=== PATIENT | female | born 1955 | race Caucasian/White ===

== ENCOUNTER → 2023-03-27 10:13 | Outpatient (REF) | payer MEDICARE, OTHER, SELFPAY | LOC: RCS 10:13 | PROVIDERS: ATTENDING PHYSICIAN Internal Medicine Cardiovascular Disease; FAMILY PHYSICIAN Family Medicine | DX: R07.9 Chest pain, unspecified (principal) | CPT/HCPCS: 93017; 93350 ==

== ENCOUNTER 2024-05-02 06:28 | Day surgery (SDC) | payer MEDICARE, OTHER, SELFPAY | END 2024-05-02 16:41 | disposition home or self-care (01) | LOC: GI 06:28 | PROVIDERS: ATTENDING PHYSICIAN Internal Medicine Gastroenterology | DX: Z12.11 Encounter for screening for malignant neoplasm of colon (principal); C19 Malignant neoplasm of rectosigmoid junction; D12.2 Benign neoplasm of ascending colon; D12.3 Benign neoplasm of transverse colon; D12.5 Benign neoplasm of sigmoid colon; Z86.0100 Personal history of colon polyps, unspecified | CPT/HCPCS: 45385; 45381; 45380; 88305; 88342 ==

== ENCOUNTER 2024-05-14 06:15 | Day surgery (SDC) | payer MEDICARE, SELFPAY | END 2024-05-14 11:51 | disposition home or self-care (01) | LOC: GI 06:15 | PROVIDERS: ATTENDING PHYSICIAN Surgery | DX: C18.9 Malignant neoplasm of colon, unspecified (principal) | CPT/HCPCS: 45330 ==

== ENCOUNTER → 2024-05-19 13:50 | Outpatient (REF) | payer MEDICARE, SELFPAY | LOC: RAD 13:50 | PROVIDERS: ATTENDING PHYSICIAN Surgery; FAMILY PHYSICIAN Family Medicine | DX: R97.0 Elevated carcinoembryonic antigen [CEA] (principal) | CPT/HCPCS: 71260; 74177; Q9967 ==

== ENCOUNTER 2024-06-12 15:56 | Observation (INO) | payer MEDICARE, SELFPAY ==
[2024-06-12] VITALS (7 sets, daily range): BP systolic 119–163; BP diastolic 58–86; BMI 22.7; BMI 21.0
--- NOTE | 2024-06-12 14:32 | ED.CVA ---
History of Present Illness
General
Chief Complaint: CVA/TIA Symptoms
Time Seen by Provider: 06/12/24 14:26
Onset of Stroke Symptoms
Onset of symptoms known: Yes
Date of onset of symptoms: 06/12/24
Time of onset of symptoms: 14:30
Time pt last seen normal is known: Yes
Date last time pt seen normal: 06/12/24
History of Present Illness
History of Present Illness:
69-year-old female without significant past medical history presenting for acute onset of left facial drooping and slurred speech. Patient reports she was walking and felt like she was leaning to the left. Symptoms started about 1 hour ago. She
then saw her daughter, 30 minutes prior to arrival, who also noticed symptoms. Patient denies any history of stroke. Denies any recent trauma. She is not on any blood thinners. Denies chest pain, difficulty breathing, abdominal pain. Denies any
numbness or tingling to extremities. Denies visual changes. Denies additional medical complaints
Phy Exam
Physical Exam
Physical Exam:
General: Well-appearing, no clinical signs of dehydration, nontoxic and in no acute distress
HEENT: protecting airway
Neck: appears supple
CV: Normal heart rate, regular rhythm
Resp: No accessory muscle use, no increased work of breathing, lungs clear to auscultation bilaterally
Abd: Soft and non-distended, no tenderness to palpation, normal bowel sounds
Extremities: No deformities, no swelling, no erythema, pulses and sensation intact
Neuro: alert, left facial droop with mild slurring of speech
: deferred
Rectal: deferred
Psych: Normal affect
Skin: Intact
Scores
NIH Stroke Score
Level of Consciousness: 0 - Alert
LOC Questions: 0-Answers both correctly
LOC Commands: 0-Performs both correctly
Best Horizontal Gaze: 0-Normal
Visual Alejo: 0=Normal, no visual loss
Facial Palsy: 1=Minor paralysis
Motor - Right Arm: 0=No drift 10 seconds
Motor - Left Arm: 0=No drift 10 seconds
Motor - Right Le-No drift 5 seconds
Motor - Left Le-No drift 5 seconds
Limb Ataxia: 0-Absent
Sensation: 0-Normal
Best Language: 0-No aphasia
Dysarthria: 1-Mild slurring
Extinction and Inattention: 0-No abnormality
Total Score:: 2
Course
Orders/Labs/Results
Orders:
Orders
06/12/24 14:24
EKG [Electrocardiogram (*1)] Urgent
Reason for Study: Fatigue / Weakness
06/12/24 14:25
EKG- Treatment ONCE
06/12/24 14:26
CT HEAD STROKE ALERT W/o Cont Urgent
Comment:
Reason For Exam: L-droop and slurred speech
CT HEAD/NECK ANG STROKE ALERT Urgent
Comment:
Reason For Exam: L-droop and slurred speech
06/12/24 14:28
Complete Blood Count/With Diff Urgent
Comprehensive Metabolic Panel Urgent
PTT Urgent
Prothrombin Time Urgent
Troponin I Urgent
Abnormal Lab Results
06/12/24 06/12/24
14:28 14:48
RBC 3.90 L 10^6/uL
(4.20-5.40)
Hgb 11.3 L g/dL
(12.0-16.0)
Hct 34.2 L %
(37.0-47.0)
Glucose 137 H mg/dl
(70-99)
POC Glucose 136 H mg/dl
(70-99)
06/12/24 14:28
06/12/24 14:28
Vital Signs
Initial and Last Documented VS:
Initial Vital Signs
Pulse Resp BP Pulse Ox
80 18 132/79 99
06/12/24 14:17 06/12/24 14:17 06/12/24 14:17 06/12/24 14:17
Last Documented Vital Signs
Temp Pulse Resp BP Pulse Ox
97.5 F 75 22 137/86 96
06/12/24 14:53 06/12/24 14:53 06/12/24 14:53 06/12/24 14:53 06/12/24 14:53
MDM/Problems Addressed
MDM/Problems Addressed:
69-year-old female without significant past medical history presenting for acute onset of facial drooping, slurred speech, off balance, which started an hour prior to arrival. Vital signs are normal.
On exam, patient resting comfortably, no acute distress. Patient arrives by triage, immediately evaluated for concern of strokelike symptoms. Stroke alert was subsequently called because patient is within window for TNK. NIH stroke scale is a 2
for slurring of speech and facial droop. Patient sent immediately to CT scan. Neurology at bedside
15:00 -CT and CTA are negative for acute process. In discussion with neuro, no TNK given minimal deficits, and additionally patient has active cancerous process. She has had breast cancer in the past, suspected colon cancer, still waiting on
staging. Will start on aspirin and Plavix and plan for admission for continued monitoring and MRI
*Critical Care Note
Total Time (30-74mins, 75-104mins- exclusive of procedures): Not Applicable
ED Attending Note
-
Portions of this chart may have been created with voice recognition software.� Occasional wrong word or��sound alike� substitutions may have occurred due to the inherent limitations of voice recognition software.
Discharge Plan
Departure
Prescriptions:
No Action
levetiracetam [Keppra] 500 mg Tablet
500 mg PO HS
levetiracetam [Keppra] 250 mg Tablet
250 mg PO DAILY
duloxetine [Cymbalta] 20 mg Capsule,Delayed Release(Dr/Ec)
20 mg PO HS
duloxetine [Cymbalta] 60 mg Capsule,Delayed Release(Dr/Ec)
60 mg PO HS
aripiprazole 2 mg Tablet
2 mg PO HS
cholecalciferol (vitamin D3) [Vitamin D3] 25 mcg (1,000 unit) Tablet
25 mcg PO DAILY
Interventions
Interventions:
*Risk Screen - Suicide Last Done: 06/12/24 14:53
*General Assessment Last Done: 06/12/24 14:53
*Neglect/Abuse Screening Last Done: 06/12/24 14:53
*ED- Fall Risk Assessment Last Done: 06/12/24 14:53
*ED COVID-19 Vaccine History Last Done: 06/12/24 14:53
ED- Pulmonary Assessment Last Done: 06/12/24 14:53
ED- Neurological Assessment Last Done: 06/12/24 14:53
ED- Cardiac Assessment Last Done: 06/12/24 14:53
ED Swallowing Screen Last Done: 06/12/24 14:53
Discharge Date and Time
Print Language: BURKINAN
[2024-06-12 14:34] LABS: % Basophils 0.6 % (0-2); % Eosinophils 1.6 % (0-6); % Immature Granulocytes 0.2 % (0-0.5); % Lymphocytes 32.4 % (20.5-51.1); % Monocytes 8.5 % (1.7-9.3); % Neutrophils 56.7 % (42.2-75.2); Absolute Eosinophils 0.1 10^3/uL (0-0.7); Absolute Lymphocytes 1.6 10^3/uL (1.2-3.4); Absolute Monocytes 0.4 10^3/uL (0.1-0.6); Absolute Neutrophils 2.9 10^3/uL (1.4-6.5); Hematocrit 34.2 % (37.0-47.0); Hemoglobin 11.3 g/dL (12.0-16.0); Mean Corpuscular Volume 87.7 fL (81.0-99.0); Mean Platelet Volume 8.6 fL (7.4-10.4); Nucleated Red Blood Cells % 0 %; Platelet Count 274 10^3/uL (130-400); Red Cell Dist. Width 12.8 % (11.5-14.5); White Blood Cell Count 5.1 10^3/uL (4.8-10.8)
[2024-06-12 14:47] LABS: INR 0.96; PT 13.2 Sec (11.4-14.6)
[2024-06-12 14:48] LABS: APTT 26.8 Sec (23.4-35.0)
[2024-06-12 14:50] LABS: Glucose - Point of Care 136 mg/dl (70-99)
[2024-06-12 14:53] LABS: ALT (SGPT) 27 U/L (0-35); AST (SGOT) 35 U/L (14-36); Albumin 4.5 g/dl (3.5-5.0); Alkaline Phosphatase 71 U/L (38-126); Blood Urea Nitrogen 13 mg/dl (7-17); Calcium 9.7 mg/dl (8.4-10.2); Carbon Dioxide 29 mmol/L (22-30); Chloride 103 mmol/L (98-107); Glucose 137 mg/dl (70-99); Potassium 4.4 mmol/L (3.5-5.1); Sodium 141 mmol/L (135-145); Total Bilirubin 0.6 mg/dl (0.2-1.3); eGFR > 60.00
[2024-06-12 14:57] LABS: Troponin I < 0.012 ng/ml
--- NOTE | 2024-06-12 15:03 | CON.NEURO ---
Consultation
Order
Date of Consultation: 06/12/24
Requesting Provider: Paramjit Gu MD
Reason for Consult: Stroke alert
Called in at 14:21
Neurology Consultation Note.
HPI: This is a 69-year-old RH woman who presented to [facility] on 06/12/2024 with dysarthria, imbalance and facial asymmetry. According to the patient she noted an acute imbalance while outside with her grandson. She felt like she
was leaning to the left a couple of times after returning indoors. The patient's daughter noticed facial symmetry and dysarthria that patient is still unaware of. No reports of headaches, change in vision, strength or similar episodes in the past.
Ms. Bernal had been with her daughter since 10:00 AM. Around 12:30 PM, the patient went outside for about 45 minutes. Upon returning inside, she reported that her balance was off. The daughter noticed the change in her mother's speech at
approximately 2:00 PM, prompting them to seek medical attention.
In the week prior to presentation, the patient noticed intermittent paraphasic errors (e.g., saying 'pain' instead of 'Ihsan'). This occurred 8-10 times over a few days, which she found unusual.
Ms. Bernal is currently taking Keppra 250/500. She has a history of epilepsy presenting with convulsions on 3 occasions throughout her life.
ER VS: 132/79, 80, afebrile
EKG: NSR, QTc Int : 453 ms
PDMP: Clonazepam 0.5 Mg 90 tabs filled in on 02/04/2024, 30 tabs filled in on 05/26/2024.
Labs: Glucose�137, normal sodium, WBCs, platelets, hemoglobin�11.3
CT head wo contrast�no acute abnormalities, pineal cyst
CTA head/neck no evidence of hemodynamically significant stenosis
PMH: Sigmoid adenocarcinoma, breast cancer, epilepsy (convulsions at the age of 18, 22 and approximately 7 years ago), [place]
PSH: Bilateral mastectomy with reconstruction: Colonoscopy with biopsy
SH: Lives alone, non-smoker, independent in [place]
FH: Cancer
All:NKDA
ROS: Constitutional: Negative. Negative for chills, fever and unexpected weight change.
HENT: Negative for ear pain, hearing loss, tinnitus and trouble swallowing.
Eyes: Negative. Negative for photophobia, pain and visual disturbance.
Respiratory: Negative for cough, choking and shortness of breath.
Cardiovascular: Negative for chest pain, palpitations and leg swelling.
Gastrointestinal: Negative for abdominal pain and vomiting.
Endocrine: Negative. Negative for cold intolerance.
Genitourinary: Negative for dysuria, flank pain and urgency.
Musculoskeletal: Negative for back pain, gait problem, neck pain and neck stiffness.
Skin: Negative for rash.
Allergic/Immunologic: Negative. Negative for immunocompromised state.
Neurological: Positive for dysarthria, imbalance
Psychiatric/Behavioral: Negative for behavioral problems, confusion and hallucinations.
General: Well developed. In no acute distress.
Cardio: Regular rate and rhythm without murmur. Extremities are without cyanosis or edema.
Neuro:
Mental Status: Alert, oriented to person, place, and date. Normal attention and recall. Good fund of knowledge. Follows complex requests across the midline. Comprehension, naming, and repetition intact.
Cranial Nerves: Pupils are equally round and reactive to light. EOMs full. Visual masters full to confrontation. No ptosis. No nystagmus. V1-V3 intact to light touch and pinprick bilaterally, symmetric. Left nasolabial fold flattening. Normal
hearing AU. The palate elevated well. SCMs and traps 5/5. Tongue midline. Minimal lingual dysarthria.
Motor: Normal bulk and tone. No pronator or arm drift. Strength 5/5 throughout. No clonus.
Sensory: No extinction to double simultaneous stimuli
Coordination: Mild action hand tremor. No dysmetria
Gait: deferred
NIH: 2
Assessment and Plan:
I. Right subcortical infarct. Not a candidate for IV TNK due to low NIH stroke scale.
II. Seizure DO, NOS
III. Pineal cyst
IV. History of breast cancer
-Continue Telemetry monitoring
-Start ASA 81 mg QD
-Brain MRI with and without well[place]
-Obtain medical records from patient's PCP
-Please check HbA1C, LDL, urine tox
-DVT prophylaxis.
I personally reviewed all radiology and labs along with past medical records pertinent to current medical problems. Total time spent in patient care is 65 minutes.
Thank you for allowing us to participate in the care of this patient. We will continue to follow. Please do not hesitate to contact us with any questions or concerns.
Subjective/Objective
Subjective Data
Date of Service: June 12, 2024
Objective Data
Vital Signs
Temp Pulse Resp BP Pulse Ox
36.4 C 75 22 137/86 96
06/12/24 14:53 06/12/24 14:53 06/12/24 14:53 06/12/24 14:53 06/12/24 14:53
Lab Results
06/12/24 14:28
06/12/24 14:28
PT 13.2 Sec (11.4-14.6) 06/12/24 14:28
INR 0.96 06/12/24 14:28
APTT 26.8 Sec (23.4-35.0) 06/12/24 14:28
Sodium 141 mmol/L (135-145) 06/12/24 14:28
Potassium 4.4 mmol/L (3.5-5.1) 06/12/24 14:28
BUN 13 mg/dl (7-17) 06/12/24 14:28
Glucose 137 mg/dl (70-99) H 06/12/24 14:28
Calcium 9.7 mg/dl (8.4-10.2) 06/12/24 14:28
Patient Allergies
NKA - No Known Allergies Allergy (Uncoded 06/20/07 14:06)
Vital Signs and Labs
-
Vital Signs and Labs:
Vital Signs
Temp Pulse Resp BP Pulse Ox
36.4 C 75 22 137/86 96
06/12/24 14:53 06/12/24 14:53 06/12/24 14:53 06/12/24 14:53 06/12/24 14:53
Lab Results
06/12/24 14:28
06/12/24 14:28
PT 13.2 Sec (11.4-14.6) 06/12/24 14:28
INR 0.96 06/12/24 14:28
APTT 26.8 Sec (23.4-35.0) 06/12/24 14:28
Sodium 141 mmol/L (135-145) 06/12/24 14:28
Potassium 4.4 mmol/L (3.5-5.1) 06/12/24 14:28
BUN 13 mg/dl (7-17) 06/12/24 14:28
Glucose 137 mg/dl (70-99) H 06/12/24 14:28
Calcium 9.7 mg/dl (8.4-10.2) 06/12/24 14:28
Home Medications
-
Home Medications
aripiprazole 2 mg tablet 2 mg PO HS 06/12/24
cholecalciferol (vitamin D3) 25 mcg (1,000 unit) tablet (Vitamin D3) 25 mcg PO DAILY 06/12/24
duloxetine 20 mg capsule,delayed release (Cymbalta) 20 mg PO HS 06/12/24
duloxetine 60 mg capsule,delayed release (Cymbalta) 60 mg PO HS 06/12/24
levetiracetam 250 mg tablet (Keppra) 250 mg PO DAILY 06/12/24
levetiracetam 500 mg tablet (Keppra) 500 mg PO HS 06/12/24
[2024-06-12] MEDS: ASPIRIN 325 MG PO (15:31)
[2024-06-12] MEDS: PLAVIX 300 MG PO (15:31)
--- NOTE | 2024-06-12 15:52 | HPS.HSE ---
Addendum entered and electronically signed by Paramjit Gu MD 06/12/24 15:55:
Speech and swallow ordered.
Original Note:
Family Physician
-
Family Physician: Colton Cruz
Chief Complaint
-
facial droop
History of Present Illness
69-year-old female past medical history of epilepsy, hyperlipidemia, osteoporosis, hypertension, depression, breast cancer s/p double mastectomy, sigmoid colon cancer, presenting with acute onset of left facial droop and slurred speech starting 1
hour ago. She was walking and felt like she was leaning to the left. Daughter also noted similar symptoms. Denies history of stroke. Denies any trauma. Denies any numbness or tingling. Denies visual changes. Denies vertigo. Denies headache.
She denies smoking or alcohol use.
No family history of strokes.
Medical History
Past Medical History
Past Medical History: Reports Other (epilepsy, hyperlipidemia, osteoporosis, hypertension, depression, sigmoid colon cancer,)
Past Surgical History: Reports Other (double mastectomy )
Social History
Tobacco: Non-smoker
Alcohol: None
Drug: None
Family History
Family History: Not pertinent
Allergies / Home Medications
Allergies reflects when Allergies were last updated in [facility].
Home Medications with original date entered in [facility]
Allergy/Medication List:
Allergies
Allergy/AdvReac Type Severity Reaction Status Date / Time
NKA - No Known Allergies Allergy Uncoded 06/20/07 14:06
Home Medications
aripiprazole 2 mg tablet 2 mg PO HS 06/12/24
cholecalciferol (vitamin D3) 25 mcg (1,000 unit) tablet (Vitamin D3) 25 mcg PO DAILY 06/12/24
duloxetine 20 mg capsule,delayed release (Cymbalta) 20 mg PO HS 06/12/24
duloxetine 60 mg capsule,delayed release (Cymbalta) 60 mg PO HS 06/12/24
levetiracetam 250 mg tablet (Keppra) 250 mg PO DAILY 06/12/24
levetiracetam 500 mg tablet (Keppra) 500 mg PO HS 06/12/24
Review of Systems
-
History Source: Patient
A 12 point ROS was completed and negative except as noted: Yes
Constitutional: Reports No Symptoms
EENT: Reports No Symptoms
Respiratory: Reports No Symptoms
Cardiac: Reports No Symptoms
Abdomen/GI: Reports No Symptoms
: Reports No Symptoms
Musculoskeletal: Reports No Symptoms
Skin: Reports No Symptoms
Neurological: Reports See HPI
Endocrine: Reports No Symptoms
Hematologic/Lymphatic: Reports No Symptoms
Psych: Reports No Symptoms
Physical Exam
Vital Signs
Vital Signs
Temp Pulse Resp BP Pulse Ox
97.5 F 75 22 137/86 96
06/12/24 14:53 06/12/24 14:53 06/12/24 14:53 06/12/24 14:53 06/12/24 14:53
Physical Exam
General: Well Developed, Well Nourished and No Apparent Distress
HEENT: NormoCephalic, Moist mucous membranes and Atraumatic
Respiratory: Clear
Cardiac: S1/S2 and Regular Rhythm; No Murmur or Rub
GI: Soft, Non Tender, Non Distended and Normal Bowel Sounds; No Organomegaly
Rectal: Deferred by Provider
Musculoskeletal: No Clubbing, No Cyanosis and No Edema
Skin: No Rash
Neuro: Nonfocal/grossly intact
Laboratory Results
-
06/12/24 14:28
06/12/24 14:28
Laboratory Results
PT 13.2 Sec (11.4-14.6) 06/12/24 14:28
INR 0.96 06/12/24 14:28
APTT 26.8 Sec (23.4-35.0) 06/12/24 14:28
Total Bilirubin 0.6 mg/dl (0.2-1.3) 06/12/24 14:28
AST 35 U/L (14-36) 06/12/24 14:28
ALT 27 U/L (0-35) 06/12/24 14:28
Alkaline Phosphatase 71 U/L (38-126) 06/12/24 14:28
Troponin I < 0.012 ng/ml 06/12/24 14:28
Data Reviewed
-
Lab Data: Labs Reviewed by me
Old Records: Reviewed
Impression/Plan
-
IMPRESSION:
PLAN:
# Likely CVA
- NIH of 2 for facial palsy on the left, mild slurring
- CT head shows no acute abnormality
- CTA head and neck shows no major branch vessel occlusion
-Aspirin and Plavix
-Check A1c and lipid panel
-MRI brain
- Seen by neurology
History of epilepsy
- Continue Keppra
Depression
- Continue duloxetine, aripiprazole
Hyperlipidemia
Osteoporosis
Essential hypertension
Sigmoid colon cancer
- Supposed to undergo colon resection in 2 weeks at [facility]
Breast cancer status post double mastectomy
Full code
DVT prophylaxis�SCDs
Regular diet
[2024-06-12 18:27] LABS: Creatine Phosphokinase 386 U/L (30-135); Total Cholesterol 273 mg/dl (50-199); Triglyceride 166 mg/dl (10-149); Very Low Density Lipoprotein 33 mg/dl (0-30)
[2024-06-12 18:30] LABS: Alcohol None Detected
[2024-06-12 18:43] LABS: HDL Cholesterol 118 mg/dl; LDL Cholesterol, Calculated 122 mg/dl
[2024-06-12 19:12] LABS: TSH Reflex To Free T4 2.15 uIU/ml (0.47-4.68)
[2024-06-12 19:31] LABS: Vitamin B12 316 pg/ml (239-931)
[2024-06-12] MEDS: CYMBALTA DELAYED RELEASE 20 MG PO (21:25)
[2024-06-12] MEDS: ABILIFY 2 MG PO (21:26)
[2024-06-12] MEDS: CYMBALTA DELAYED RELEASE 60 MG PO (21:26)
[2024-06-12] MEDS: KEPPRA 500 MG PO (21:26)
[2024-06-13 03:36] VITALS: BP 107/59
[2024-06-13 07:03] LABS: Hematocrit 32.1 % (37.0-47.0); Hemoglobin 10.8 g/dL (12.0-16.0); Mean Corp Hgb Conc. 33.6 g/dL (33.0-37.0); Mean Corpuscular Hgb 28.9 pg (27.0-31.0); Mean Corpuscular Volume 85.8 fL (81.0-99.0); Mean Platelet Volume 8.5 fL (7.4-10.4); Platelet Count 241 10^3/uL (130-400); Red Blood Cell Count 3.74 10^6/uL (4.20-5.40); Red Cell Dist. Width 12.9 % (11.5-14.5); White Blood Cell Count 4.1 10^3/uL (4.8-10.8)
[2024-06-13 07:23] LABS: ALT (SGPT) 24 U/L (0-35); AST (SGOT) 30 U/L (14-36); Albumin 4.3 g/dl (3.5-5.0); Alkaline Phosphatase 69 U/L (38-126); Blood Urea Nitrogen 12 mg/dl (7-17); Calcium 9.5 mg/dl (8.4-10.2); Carbon Dioxide 27 mmol/L (22-30); Chloride 104 mmol/L (98-107); Estimated Creatinine Clearance 84 ml/min; Glucose 94 mg/dl (70-99); Potassium 4.2 mmol/L (3.5-5.1); Sodium 140 mmol/L (135-145); Total Bilirubin 0.7 mg/dl (0.2-1.3); Total Protein 6.5 g/dl (6.3-8.2); eGFR > 60.00
--- NOTE | 2024-06-13 07:50 | W.PN.NEURO.1 ---
Today's Communication / Plan
-
.
Subjective/Objective
Subjective Data
Date of Service: June 13, 2024
Neurology follow-up note.
reports no complaints. She has remained normotensive throughout admission.
Brain MRI showed an acute infarct in the right [place] radiata.
LDL�122.
PMH: Sigmoid adenocarcinoma, breast cancer, epilepsy (convulsions at the age of 18, 22 and approximately 7 years ago), MDD, [place]
PSH: Bilateral mastectomy with reconstruction: Colonoscopy with biopsy
SH: Lives alone, non-smoker, independent in [place]
FH: Cancer
All:NKDA
ROS: Constitutional: Negative. Negative for chills, fever and unexpected weight change.
HENT: Negative for ear pain, hearing loss, tinnitus and trouble swallowing.
Eyes: Negative. Negative for photophobia, pain and visual disturbance.
Respiratory: Negative for cough, choking and shortness of breath.
Cardiovascular: Negative for chest pain, palpitations and leg swelling.
Gastrointestinal: Negative for abdominal pain and vomiting.
Endocrine: Negative. Negative for cold intolerance.
Genitourinary: Negative for dysuria, flank pain and urgency.
Musculoskeletal: Negative for back pain, gait problem, neck pain and neck stiffness.
Skin: Negative for rash.
Allergic/Immunologic: Negative. Negative for immunocompromised state.
Neurological: Positive for dysarthria, imbalance
Psychiatric/Behavioral: Negative for behavioral problems, confusion and hallucinations.
General: Well developed. In no acute distress.
Cardio: Regular rate and rhythm without murmur. Extremities are without cyanosis or edema.
Neuro:
Mental Status: Alert, oriented to person, place, and date. Normal attention and recall. Good fund of knowledge. Follows complex requests across the midline. Comprehension, naming, and repetition intact.
Cranial Nerves: Pupils are equally round and reactive to light. EOMs full. Visual masters full to confrontation. No ptosis. No nystagmus. V1-V3 intact to light touch and pinprick bilaterally, symmetric. Left nasolabial fold flattening. Normal
hearing AU. The palate elevated well. SCMs and traps 5/5. Tongue midline. Minimal lingual dysarthria.
Motor: Normal bulk and tone. No pronator or arm drift. Strength 5/5 throughout. No clonus.
Sensory: No extinction to double simultaneous stimuli
Coordination: Mild action hand tremor. No dysmetria
Gait: deferred
Assessment and Plan:
I. Right [place] radiata stroke. Likely etiology�hypercoagulability�from underlying cancer, hyperlipidemia
II. Seizure DO, NOS
III. Pineal cyst
IV. History of breast cancer
- Continue Telemetry monitoring
- DAPT for 3 weeks followed by aspirin 81 mg lifelong
- Continue Lipitor 40 mg nightly
- Follow-up TTE
- Continue Keppra 500 mg twice daily
- Outpatient neurology follow-up
I personally reviewed all radiology and labs along with past medical records pertinent to current medical problems. Total time spent in patient care is 35 minutes.
Thank you for allowing us to participate in the care of this patient. Please do not hesitate to contact us with any questions or concerns.
Objective Data
Vital Signs
Temp Pulse Resp BP Pulse Ox
36.7 C 64 16 107/59 98
06/13/24 03:36 06/13/24 03:36 06/13/24 03:36 06/13/24 03:36 06/13/24 03:36
Lab Results
06/13/24 06:32
06/13/24 06:32
PT 13.2 Sec (11.4-14.6) 06/12/24 14:28
INR 0.96 06/12/24 14:28
APTT 26.8 Sec (23.4-35.0) 06/12/24 14:28
Sodium 140 mmol/L (135-145) 06/13/24 06:32
Potassium 4.2 mmol/L (3.5-5.1) 06/13/24 06:32
BUN 12 mg/dl (7-17) 06/13/24 06:32
Glucose 94 mg/dl (70-99) 06/13/24 06:32
Calcium 9.5 mg/dl (8.4-10.2) 06/13/24 06:32
LDL Cholesterol, Calc Cancelled 06/12/24 16:09
Vitamin B12 316 pg/ml (375-249) 06/12/24 14:28
Patient Allergies
NKA - No Known Allergies Allergy (Uncoded 06/20/07 14:06)
Vital Signs and Labs
-
Vital Signs and Labs:
Vital Signs
Temp Pulse Resp BP Pulse Ox
36.9 C 69 18 126/68 98
06/13/24 08:12 06/13/24 08:12 06/13/24 08:12 06/13/24 08:12 06/13/24 08:12
Lab Results
06/13/24 06:32
06/13/24 06:32
PT 13.2 Sec (11.4-14.6) 06/12/24 14:28
INR 0.96 06/12/24 14:28
APTT 26.8 Sec (23.4-35.0) 06/12/24 14:28
Sodium 140 mmol/L (135-145) 06/13/24 06:32
Potassium 4.2 mmol/L (3.5-5.1) 06/13/24 06:32
BUN 12 mg/dl (7-17) 06/13/24 06:32
Glucose 94 mg/dl (70-99) 06/13/24 06:32
Calcium 9.5 mg/dl (8.4-10.2) 06/13/24 06:32
LDL Cholesterol, Calc Cancelled 06/12/24 16:09
Vitamin B12 316 pg/ml (285-946) 06/12/24 14:28
Medications
-
Medications:
Generic Name Dose Route Start Last Admin
Trade Name Lisandro MARIA Reason Stop Dose Admin
Aripiprazole 2 mg 06/12/24 22:00 06/12/24 21:26
Aripiprazole 2 Mg Tablet PO 07/10/24 21:59 2 mg
HS DARIEN Administration
Aspirin 81 mg 06/13/24 08:00 06/13/24 08:55
Aspirin 81 Mg Chewable Tablet PO 07/11/24 07:59 81 mg
DAILY DARIEN Administration
Atorvastatin Calcium 40 mg 06/13/24 18:00
Atorvastatin (Lipitor) 20 Mg Tablet PO 07/11/24 17:59
QPM DARIEN
Cholecalciferol 25 mcg 06/13/24 08:00 06/13/24 08:55
Cholecalciferol (Vitamin D3) 25 Mcg Tablet (1,000 Units) PO 07/11/24 07:59 25 mcg
DAILY DARIEN Administration
Clopidogrel Bisulfate 75 mg 06/13/24 08:00 06/13/24 08:55
Clopidogrel 75 Mg Tablet PO 07/11/24 07:59 75 mg
DAILY DARIEN Administration
Duloxetine HCl 20 mg 06/12/24 22:00 06/12/24 21:25
Duloxetine Delayed Release 20 Mg Capsule PO 07/10/24 21:59 20 mg
HS DARIEN Administration
Duloxetine HCl 60 mg 06/12/24 22:00 06/12/24 21:26
Duloxetine Delayed Release 60 Mg Capsule PO 07/10/24 21:59 60 mg
HS DARIEN Administration
Levetiracetam 250 mg 06/13/24 08:00 06/13/24 08:54
Levetiracetam 250 Mg Regular Release Tablet PO 07/11/24 07:59 250 mg
DAILY DARIEN Administration
Levetiracetam 500 mg 06/12/24 22:00 06/12/24 21:26
Levetiracetam 500 Mg Regular Release Tablet PO 07/10/24 21:59 500 mg
HS DARIEN Administration
Sodium Chloride 0 flush 06/12/24 18:00
Sodium Chloride 0.9% (Flush) Syringe IV 07/10/24 17:59
PER PROTOCOL DARIEN
Home Medications
-
Home Medications
aripiprazole 2 mg tablet 2 mg PO HS Mental Health/Anxiety 06/12/24
cholecalciferol (vitamin D3) 25 mcg (1,000 unit) tablet (Vitamin D3) 25 mcg PO DAILY Supplement 06/12/24
duloxetine 20 mg capsule,delayed release (Cymbalta) 20 mg PO HS Depression 06/12/24
duloxetine 60 mg capsule,delayed release (Cymbalta) 60 mg PO HS Depression 06/12/24
levetiracetam 250 mg tablet (Keppra) 250 mg PO DAILY Seizures 06/12/24
levetiracetam 500 mg tablet (Keppra) 500 mg PO HS Seizures 06/12/24
[2024-06-13 07:59] LABS: % Basophils 0.7 % (0-2); % Eosinophils 2.2 % (0-6); % Lymphocytes 38.1 % (20.5-51.1); % Monocytes 11.1 % (1.7-9.3); % Neutrophils 47.9 % (42.2-75.2); Absolute Eosinophils 0.1 10^3/uL (0-0.7); Absolute Lymphocytes 1.6 10^3/uL (1.2-3.4); Absolute Monocytes 0.5 10^3/uL (0.1-0.6); Nucleated Red Blood Cells % 0 %
[2024-06-13 08:12] VITALS: BP 126/68
[2024-06-13] MEDS: KEPPRA 250 MG PO (08:54)
[2024-06-13] MEDS: VITAMIN D3 (cholecalciferol) 25 MCG PO (08:55)
[2024-06-13] MEDS: LOW STRENGTH ASPIRIN 81 MG PO (08:55)
[2024-06-13] MEDS: PLAVIX 75 MG PO (08:55)
--- NOTE | 2024-06-13 11:55 | W.PN.HOSP.TC ---
Addendum entered and electronically signed by Mitzy Treadwell MD 06/13/24 17:30:
total DC time 40 min
Addendum entered and electronically signed by Mitzy Treadwell MD 06/13/24 14:04:
I saw and evaluated the patient. I reviewed the resident�s note and agree with findings and plan as documented in the resident�s note.
A/P:
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
Per neurology DAPT for 3 weeks followed by aspirin 81 mg
LDL 122 this admission, started Lipitor 40 mg, goal LDL <70
Echo unrevealing, EF 55%
Okay to continue solid food
No need for intermediate for PT eval
Okay for discharge
# History of epilepsy
Continue Keppra 500 mg twice daily
# Anxiety/depression
Continue duloxetine and aripiprazole
# History of breast cancer s/p mastectomy
# History of sigmoid colon cancer
Scheduled for colon resection in 2 weeks at [facility]
# Hyperlipidemia
Lipitor
Original Note:
Today's Communication/Plan
-
DAPT for 3 weeks and then aspirin 81 mg daily
Lipitor to 40 mg daily
Echo pending
Speech/PT/OT
Possible discharge today if patient remains medically/clinically stable
Assessment / Plan
Assessment / Plan
Impression
CVA/right [place] radiator stroke
History of epilepsy
History of breast cancer s/p mastectomy
History of sigmoid colon cancer
Anxiety/depression
Hyperlipidemia
Plan
CVA/right [place] radiator stroke
Per neurology DAPT for 3 weeks followed by aspirin 81 mg
Continue Lipitor 40 mg, goal LDL <70
Echocardiogram pending
Speech eval/treat
PT/ OT
Possible discharge later today
History of epilepsy
Continue Keppra 500 mg twice daily
Anxiety/depression
Continue duloxetine and aripiprazole
#History of breast cancer s/p mastectomy
#History of sigmoid colon cancer
-Scheduled for colon resection in 2 weeks at [facility]
Hyperlipidemia
Continue Lipitor
Anticipated Discharge: Today
Subjective/Interval History
-
Date of Service: June 13, 2024
Improvement in facial left facial droop, speech and gait
Objective Data
-
Labs:
Laboratory Results
06/13/24
06:32
WBC 4.1 L
Hgb 10.8 L
Hct 32.1 L
Plt Count 241
Sodium 140
Potassium 4.2
Chloride 104
Carbon Dioxide 27
BUN 12
Creatinine 0.6
Glucose 94
Calcium 9.5
Total Bilirubin 0.7
AST 30
ALT 24
Alkaline Phosphatase 69
Vital Signs:
Vital Signs
Temp Pulse Resp BP Pulse Ox
98.4 F 69 18 126/68 98
06/13/24 08:12 06/13/24 08:12 06/13/24 08:12 06/13/24 08:12 06/13/24 08:12
Review of Systems
-
All other systems: Reviewed and negative
Physical Exam
-
General: No Apparent Distress and Comfortable
HEENT: Normocephalic and Atraumatic
Respiratory: Clear to Auscultation; Negative Wheezes, Rales or Rhonchi
Cardiac: Regular Rhythm and S1/S2
GI: Soft, Nontender and Nondistended
Musculoskeletal: No Edema
Neuro: AO x 3, No Motor Deficits, Nonfocal/Grossly Intact, No Sensory Deficits, Facial Droop (Improvement on the left side) and Other (Dysarthria improved); Negative Tremors or Slurred Speech
Psych: Calm
Data Reviewed
-
CT Scan: Image personally visualized and interpreted, Report Reviewed by me, Discussed with Physician and Discussed with Patient
MRI: Report Reviewed by me, Discussed with Physician and Discussed with Patient
Labs: Labs Reviewed by me and Discussed with Physician
[2024-06-13 12:14] VITALS: BP 127/74
[2024-06-13 13:26] VITALS: BP 129/79; PULSE 72
[2024-06-13 15:15] VITALS: BP 122/69
--- NOTE | 2024-06-13 16:25 | W.DCSUMMARY ---
Documented by User: Tom Chang MD, Resident 06/13/24 16:52
Discharge Summary
Discharge Data
Date of Admission: 06/12/24
Date of Discharge: 06/13/24
-
Pending Results: No
Hospital Course
Discharging Physician : Dr Tom Chang, Dr Eben Canas
Disposition : Home
Primary care physician :
Principal Discharge diagnosis :
CVA/right sal[place] radiator stroke
Hyperlipidemia
Chronic Discharge diagnosis :
History of epilepsy
History of breast cancer s/p mastectomy
History of sigmoid colon cancer
Anxiety/depression
Hospital Course :
69-year-old female presented to the ED with left facial droop, slurry speech and unsteady gait. Neurology was consulted for stroke alert. CT head and CTA were unrevealing. MRI of the brain showed right sal[place] radiata infarction. Patient was
started on dual antiplatelet therapy and moderate intensity atorvastatin. Patient's speech and unsteady gait have resolved, with improved facial droop. shelter facility not needed per PT eval. Patient is being discharged on DAPT for 3
weeks and then only to continue aspirin daily, continue Lipitor 40 mg daily. Patient was advised to follow-up with neurology outpatient. Patient has been scheduled for sigmoid colon resection (hx of sigmoid colon cancer) however this should be
delayed due to recent stroke event. Advised to f/u with colon surgery scheduling coordinator.
Important imaging findings :
06/12/24 brain MRI
Small focus of restricted diffusion within the right salinas radiata consistent with acute infarction. Mild atrophy with sequelae of mild small vessel ischemic disease. There is no evidence of intracranial metastatic disease.
Echocardiogram:
Left ventricle is small in size. Normal left ventricular systolic function.
Left ventricular ejection fraction is 55-60% by visual assessment. Normal
regional wall motion. Normal left ventricular wall thickness. Normal diastolic
function. Mitral valve opens normally. Very mild posterior leaflet prolapse. Trace-mild
mitral regurgitation. There is no cardioembolic source seen. However if clinical suspicion is high
would suggest NEAL.
Procedure findings : none
Discharge Plan
-
Patient Disposition: Home (Routine Discharge)
Discharge Diagnosis/Procedures: Stroke/right sal[place] radiator stroke
History of epilepsy
History of breast cancer s/p mastectomy
History of sigmoid colon cancer
Anxiety/depression
Hyperlipidemia
Condition: Good
Diet: Low Cholesterol
Activity: No restrictions
Driving Restrictions: As prior to admission
Bathing Restrictions: None
Referrals:
Colton Cruz MD [Family Provider] -
Additional Discharge Medication Instructions:
Continue Plavix and aspirin for 3 weeks. Only continue aspirin after that. Stop Plavix after 3 weeks.
Continue Lipitor 40 mg daily
Continue vitamin B12 tablets
Please follow-up with neurology outpatient
Please follow-up PCP outpatient
Prescriptions:
New
atorvastatin 20 mg Tablet
40 mg PO QPM Qty: 30 0RF
cyanocobalamin (vitamin B-12) 100 mcg Tablet
100 mcg PO DAILY Qty: 30 0RF
clopidogrel 75 mg Tablet
75 mg PO DAILY Qty: 21 0RF
aspirin 81 mg Tablet,Chewable
81 mg PO DAILY Qty: 30 0RF
Continued
levetiracetam [Keppra] 500 mg Tablet
500 mg PO HS
levetiracetam [Keppra] 250 mg Tablet
250 mg PO DAILY
duloxetine [Cymbalta] 20 mg Capsule,Delayed Release(Dr/Ec)
20 mg PO HS
duloxetine [Cymbalta] 60 mg Capsule,Delayed Release(Dr/Ec)
60 mg PO HS
aripiprazole 2 mg Tablet
2 mg PO HS
cholecalciferol (vitamin D3) [Vitamin D3] 25 mcg (1,000 unit) Tablet
25 mcg PO DAILY
Discharge Orders:
Discharge Patient (As Directed); Ordered 06/13/24
Ordered By: Tom Chang
Discharge Date and Time
Print Language: KOREAN

Documented by User: Mitzy Treadwell MD 06/13/24 17:29
Discharge Summary
Discharge Data
Date of Admission: 06/12/24
Date of Discharge: 06/13/24
Hospital Course
Discharging Physician : Dr Tom Chang, Dr Eben Canas
Disposition : Home
Primary care physician :
Principal Discharge diagnosis :
CVA/right salinas radiator stroke
Hyperlipidemia
Chronic Discharge diagnosis :
History of epilepsy
History of breast cancer s/p mastectomy
History of sigmoid colon cancer
Anxiety/depression
Hospital Course :
69-year-old female presented to the ED with left facial droop, slurry speech and unsteady gait. Neurology was consulted for stroke alert. Her CT head and CTA were unrevealing. Her MRI brain showed right sal[place] radiata infarction. Patient was
started on dual antiplatelet therapy and high intensity atorvastatin at 40 mg. Patient's slurred speech, facial droop, and unsteady gait resolved during her hospital stay. She was seen by PT OT and was cleared to return home.
Patient was discharged on DAPT with ASA and Plavix to take for 3 weeks, and after that to continue with baby aspirin alone.
She was also started with Lipitor 40 mg daily (her LDL was at 122 this admission).
Patient was advised to follow-up with neurology outpatient.
Patient has a scheduled appointment for sigmoid colon resection (for sigmoid colon cancer). She has been informed to follow up with her colorectal surgery to discuss if her planned surgery needed to be postponed or not due to her stroke.
Important imaging findings :
06/12/24 brain MRI
Small focus of restricted diffusion within the right sal[place] radiata consistent with acute infarction. Mild atrophy with sequelae of mild small vessel ischemic disease. There is no evidence of intracranial metastatic disease.
Echocardiogram:
Left ventricle is small in size. Normal left ventricular systolic function.
Left ventricular ejection fraction is 55-60% by visual assessment. Normal
regional wall motion. Normal left ventricular wall thickness. Normal diastolic
function. Mitral valve opens normally. Very mild posterior leaflet prolapse. Trace-mild
mitral regurgitation. There is no cardioembolic source seen. However if clinical suspicion is high
would suggest NEAL.
Procedure findings : none
Discharge Plan
-
Patient Disposition: Home (Routine Discharge)
Discharge Diagnosis/Procedures: Stroke/right sal[place] radiator stroke
History of epilepsy
History of breast cancer s/p mastectomy
History of sigmoid colon cancer
Anxiety/depression
Hyperlipidemia
Condition: Good
Diet: Low Cholesterol
Activity: No restrictions
Driving Restrictions: As prior to admission
Bathing Restrictions: None
Referrals:
Colton Cruz MD [Family Provider] -
Additional Discharge Medication Instructions:
Continue Plavix and aspirin for 3 weeks. Only continue aspirin after that. Stop Plavix after 3 weeks.
Continue Lipitor 40 mg daily
Continue vitamin B12 tablets
Please follow-up with neurology outpatient
Please follow-up PCP outpatient
Prescriptions:
New
atorvastatin 20 mg Tablet
40 mg PO QPM Qty: 30 0RF
cyanocobalamin (vitamin B-12) 100 mcg Tablet
100 mcg PO DAILY Qty: 30 0RF
clopidogrel 75 mg Tablet
75 mg PO DAILY Qty: 21 0RF
aspirin 81 mg Tablet,Chewable
81 mg PO DAILY Qty: 30 0RF
Continued
levetiracetam [Keppra] 500 mg Tablet
500 mg PO HS
levetiracetam [Keppra] 250 mg Tablet
250 mg PO DAILY
duloxetine [Cymbalta] 20 mg Capsule,Delayed Release(Dr/Ec)
20 mg PO HS
duloxetine [Cymbalta] 60 mg Capsule,Delayed Release(Dr/Ec)
60 mg PO HS
aripiprazole 2 mg Tablet
2 mg PO HS
cholecalciferol (vitamin D3) [Vitamin D3] 25 mcg (1,000 unit) Tablet
25 mcg PO DAILY
Discharge Orders:
Discharge Patient (As Directed); Ordered 06/13/24
Ordered By: Tom Chang
Discharge Date and Time
Print Language: KOREAN
[2024-06-13] MEDS: VITAMIN B-12 100 MCG PO (16:53)
== END 2024-06-13 17:25 | disposition home or self-care (01) ==
LOC: 4 EAST ACU 15:56
PROVIDERS: Student in an Organized Health Care Education/Training Program; ADMITTING PHYSICIAN Hospitalist; ATTENDING PHYSICIAN Internal Medicine; CONSULT PHYSICIAN Psychiatry & Neurology Neurology; EMERGENCY PHYSICIAN Student in an Organized Health Care Education/Training Program; FAMILY PHYSICIAN Family Medicine
DX: I63.81 Other cerebral infarction due to occlusion or stenosis of small artery (principal); R47.81 Slurred speech; G40.909 Epilepsy, unspecified, not intractable, without status epilepticus; Z79.899 Other long term (current) drug therapy; F32.A Depression, unspecified; E78.5 Hyperlipidemia, unspecified; M81.0 Age-related osteoporosis without current pathological fracture; I10 Essential (primary) hypertension; C18.7 Malignant neoplasm of sigmoid colon; Z90.13 Acquired absence of bilateral breasts and nipples; Z79.82 Long term (current) use of aspirin; Z85.3 Personal history of malignant neoplasm of breast; Z79.02 Long term (current) use of antithrombotics/antiplatelets
CPT/HCPCS: 70450; 70496; 70498; 70553; 80053; 80061; 82077; 82550; 82607; 82962; 84443; 84484; 85025; 85610; 85730; 92523; 92610; 93005; 93306; 97161; 99285; A9575; G0378; Q9967

== ENCOUNTER → 2024-10-28 09:38 | Outpatient (REF) | payer MEDICARE, OTHER, SELFPAY | LOC: HWRAD 09:38 | PROVIDERS: ATTENDING PHYSICIAN Family Medicine | DX: R91.8 Other nonspecific abnormal finding of lung field (principal) | CPT/HCPCS: 71250 ==